=== PATIENT | female | born 1975 ===

== ENCOUNTER 2020-06-04 11:32 | Outpatient (REF) | payer OTHER, SELFPAY ==
[2020-06-04 12:03] LABS: MANUAL DIFF FLAG NO
[2020-06-04 12:07] LABS: Basophils Absolute Auto 0.1 X10*3/uL (0.0-0.2); Basophils Percent Auto 0.4 % (0-2); Eosinophils Percent Auto 0.3 % (0-4); Hematocrit 43.6 % (37-47); Hemoglobin 14.2 g/dl (12.0-16.0); Imm Gran Pct Auto 1.4 % (0.0-0.4); Immature Retic Fraction 14.8 % (3.0-15.9); Lymphocytes Absolute Auto 1.3 X10*3/uL (1.2-4.9); Lymphocytes Percent Auto 9.2 % (20-40); Mean Corpuscular HGB Conc 32.6 g/dl (31.0-35.0); Mean Corpuscular Hemoglobin 27.1 pg (27.0-33.0); Mean Corpuscular Volume 83.2 fL (80-98); Monocytes Absolute Auto 0.9 X10*3/uL (0.1-1.2); Monocytes Percent Auto 6.5 % (2-11); Neutrophils Absolute Auto 11.5 X10*3/uL (2.0-8.3); Neutrophils Percent Auto 82.2 % (45-73); Platelet Count 307 X10*3/uL (160-400); Red Blood Count 5.24 X10*6/uL (4.20-5.50); Red Cell Distribution Width 17.2 % (11.0-16.0); Retic HGB Equivalent 30.8 pg (30.0-35.0); Reticulocytes Absolute 0.102 X10*6/uL (0.026-0.095)
[2020-06-04 12:22] LABS: Estimated Average Glucose 111 mg/dL; Hemoglobin A1c % 5.5 %
[2020-06-04 12:34] LABS: Alanine Aminotransferase 14 U/L (0-31); Albumin Level 4.1 g/dL (3.5-5.0); Alkaline Phosphatase 64 U/L (39-117); Anion Gap 13 (12-20); Aspartate Amino Transferase 11 U/L (5-31); Bilirubin Total 0.5 mg/dL (0.0-1.0); Blood Urea Nitrogen 12 mg/dL (9-16); Calcium 9.3 mg/dL (8.4-10.2); Carbon Dioxide 28 mmol/L (22-29); Chloride 105 mmol/L (96-108); Estimated Glomerular Filt Rate > 60; Glucose Random 73 mg/dL (60-115); Iron 34 mcg/dL (30-160); Magnesium 1.9 mg/dL (1.6-2.6); Percent Iron Saturation 12 % (15-50); Potassium 3.9 mmol/L (3.3-5.1); Sodium 142 mmol/L (135-145); Total Iron Binding Capacity 286 mcg/dL (228-428); Total Protein 6.6 g/dL (6.5-8.0); Unsaturated Iron Binding 252 ug/dL; Uric Acid 5.8 mg/dL (2.4-5.7)
[2020-06-04 12:49] LABS: Ferritin 57 ng/mL (10-250); Free T4 (Free Thyroxine) 0.72 ng/dL (0.71-1.85); Thyroid Stimulating Hormone 0.34 uIU/mL (0.32-4.0); Vitamin D 25-OH Total 34.3 ng/mL (>30)
[2020-06-04 13:04] LABS: Folate 15.4 ng/mL (> or = 4.0); Vitamin B12 256 pg/mL (200-900)
== END 2020-06-04 11:33 | disposition home or self-care (01) ==
LOC: HO.10HDL 11:32
PROVIDERS: Visit Provider Internal Medicine
DX: M08.00 Unspecified juvenile rheumatoid arthritis of unspecified site (principal); M81.0 Age-related osteoporosis without current pathological fracture; D64.9 Anemia, unspecified
CPT/HCPCS: 36415; 80053; 82306; 82607; 82728; 82746; 83036; 83540; 83735; 84439; 84443; 84550; 85025; 85045

== ENCOUNTER 2020-06-12 11:08 | Outpatient (REF) | payer OTHER, SELFPAY ==
[2020-06-12 14:16] LABS: Glucose Urine UA NEG (NEG); Leukocyte Esterase Urine 2+ (NEG); Nitrite Urine NEG (NEG); Urine Blood TRACE (NEG); Urine Ketones NEG (NEG); Urine Protein NEG (NEG-TRACE)
[2020-06-12 14:21] LABS: Appearance Urine CLEAR; Color Urine YELLOW
[2020-06-12 14:40] LABS: Bacteria Urine TRACE /LPF; RBC Urine 0-2 /HPF (0); Squamous Epithelial Cell Urine 1+ /LPF
== END 2020-06-12 11:09 | disposition home or self-care (01) ==
LOC: HO.10HDLNP 11:08
PROVIDERS: Visit Provider Internal Medicine
DX: M08.00 Unspecified juvenile rheumatoid arthritis of unspecified site (principal)
CPT/HCPCS: 81001

== ENCOUNTER → 2021-12-02 10:55 | Outpatient (BNVA) | payer OTHER, SELFPAY | PROVIDERS: PCP Internal Medicine; Referring Provider Internal Medicine; Visit Provider Nurse Practitioner Family | DX: Z12.11 Encounter for screening for malignant neoplasm of colon (principal) | CPT/HCPCS: 99202 ==

== ENCOUNTER 2022-12-10 10:54 | Outpatient (REF) | payer OTHER, SELFPAY ==
--- NOTE | ~2022-12-10 | MM_ITS ---
EXAMINATION: BONE DENSITOMETRY CLINICAL INDICATION: Age-related osteoporosis without current pathological fracture. COMPARISON: This is the patient's baseline examination. TECHNIQUE: Using a Visual[employer] DXA System (software version: 13.1) manufactured by [employer], dual-energy x-ray absorptiometry was performed of the lumbar spine and left forearm radius 33%. Patient had bilateral hip replacements. The images are of good technical quality. Summary results are attached. FINDINGS: AP SPINE L1-L4: BMD 0.757 g/cm2, Z-score -2.7, T-score -3.5, osteoporosis. LEFT FOREARM RADIUS 33%: BMD 0.682 g/cm2, Z-score -2.2, T-score -2.2, osteopenia. IDENTIFIED RISK FACTORS: Early menopause, secondary osteoporosis, glucocorticoids (chronic), height loss, osteoporosis, rheumatoid arthritis. HISTORY OF FRACTURE: None listed. MEDICATIONS: Calcium supplements or multivitamin, vitamin D. MM/XR DEXA axial skeleton IMPRESSION: 1. DIAGNOSIS: Osteoporosis based on the lowest T-score value of -3.5 in the lumbar spine applying World Health Organization criteria. 2. 10-YEAR FRACTURE RISK PREDICTION, FRAX: According to the guidelines, FRAX calculation should only be performed on patients in the osteopenia bone density category. Therefore, FRAX was not performed on this patient. 3. Treatment Recommendations: NOF guidelines recommend consideration for treatment in postmenopausal women and men age 50 and older presenting with the following: -A hip or vertebral (clinical or morphometric) fracture. -T-score less than or equal to -2.5 at the femoral neck or spine after appropriate evaluation to exclude secondary causes. -Low bone mass at the hip or spine and a 10-year fracture probability by FRAX of greater than or equal to 3% for hip fracture or greater than or equal to 20% for major osteoporotic fracture based on the [place] adapted WHO algorithm. 4. Other Recommendations: All treatment decisions require clinical judgment and consideration of individual patient factors, including patient preferences, comorbidities, previous drug use, risk factors not captured in the FRAX model (e.g. frailty, falls, vitamin D deficiency, increased bone turnover, interval significant decline in bone density) and possible under or overestimation of fracture risk by FRAX. Additional medical evaluation for secondary cause of low bone mineral density may be appropriate. FUTURE SCAN RECOMMENDATION: People with diagnosed cases of osteoporosis or at high risk for fracture should have regular bone mineral density tests. For patients eligible for Medicare, routine testing is allowed once every 2 years. The testing frequency can be increased to one year for patients who have rapidly progressing disease, those who are receiving or discontinuing medical therapy to restore bone mass, or have additional risk factors.
== END 2022-12-10 10:55 | disposition home or self-care (01) ==
LOC: HO.MAMMO 10:54
PROVIDERS: Visit Provider Internal Medicine
DX: Z13.820 Encounter for screening for osteoporosis (principal); M81.0 Age-related osteoporosis without current pathological fracture; Z78.0 Asymptomatic menopausal state
CPT/HCPCS: 77080

== ENCOUNTER 2023-03-18 11:17 | Outpatient (AMB) | payer OTHER, SELFPAY ==
[2023-03-18 11:19] VITALS: BP 116/80; PULSE 69; O2SAT 90
--- NOTE | 2023-03-18 11:19 | MHC.PC.OV ---
Vital Signs 03/18/23 11:19 Height 4 ft 7 in BMI Reason not done Patient refused/unable BP 116/80 Blood Pressure Location Rt brachial Position Sitting Pulse 69 Pulse Source Pulse Oximeter Pulse Oximetry (%) 90 L Oxygen Delivery Method Room Air Intake Visit Reasons: DANIKA Etl [employer] Architect Required: No Gastrointestinal Technician: Present Accompanied by: Sister Allergies No Known Allergies Allergy (Verified 03/18/23 11:19) Medication List - Last Reconciled 03/18/23 by Ramakrishna Jordan MD acai marks extract mg PO calcium carbonate-vitamin D3 600 mg-12.5 mcg (500 unit) (Calcium 600 with Vitamin D3) caps PO BID celecoxib (Celebrex) 200 mg PO DAILY [id number] mg (Mega[employer] [place]-3 Krill Oil) caps PO lactulose 20 grams (30 mL) PO BID PRN multivitamin with iron 1 tab PO DAILY upadacitinib ER (Rinvoq) 15 mg PO DAILY [walker with 2 front wheels and 2 left and right platforms] Tobacco use date assessed: 09/17/22 Dental Screening Dental Screen Date: 03/18/23 Did you have a dental visit in the last 12 months?: Yes Did you have a dental problem in the last 6 months where you did not have access to dental care?: No Was dental information given to patient?: Patient has dentist HPI DANIKA HPI Details 48-year-old female with JRA osteoporosis hypercholesterol E psoriasis coming in for follow-up. Last seen in August 2022. Patient's mammogram is up-to-date March 2022 osteoporosis by bone density November 2022. Patient does follow-up with or Rheumatology for the a GR a for the osteoporosis placed on Actonel from [id number]. Rheumatoid arthritis negative for multiple sites history of prednisone and Rinvoq currently off medication patient was advised if lab work looks good start Rinvoq. September 2022 had right total knee arthroplasty with Dr. Nicole. Patient states has psoriasis but does not like the present digital editor and would like to be referred to a different digital editor. Patient has a rash on the leg and would like some help temporarily until they can see the digital editor. As for movement patient is not able to stand up on her own but able to transfers while holding on to something discussed about moving the legs to prevent blood clots. [facility] Medical History (Updated 12/27/23 @ 12:31 by Ramakrishna Jordan MD) Anemia Schizophrenia Vitamin D deficiency Rheumatoid arthritis Surgical History (Updated 03/18/23 @ 12:18 by Ramakrishna Jordan MD) History of phacoemulsification of cataract of right eye with intraocular lens implantation History of phacoemulsification of cataract of left eye with intraocular lens implantation History of total left knee replacement History of total left hip replacement History of total right hip replacement Family History Mother Diabetes High blood pressure Heart failure Schizophrenia Mental health disorder Father Diabetes Maternal Aunt Breast cancer Social History Housing: Apartment Alcohol intake: never Patient Tobacco Use Status: Never used Tobacco e-Cigarette/Vaping Use: Never Used Second Hand Smoke Exposure: No service: No Current occupational status: disabled Cognitive needs: No Hearing needs: Yes Vision needs: No Questionnaire Thrive Questionnaire Date Thrive assessed: 09/17/22 BIPIN-7 AMB Questionnaire BIPIN-7 Date BIPIN - 7 assessed: 09/17/22 Source: Developed by Drs. Willam Flynn, Beth Rush, Abhishek Mayfield and colleagues, with an educational dian from [employer]. Physical exam (Primary Care) Vital Signs: Last Vital Signs Pulse 69 03/18/23 11:19 BP 116/80 03/18/23 11:19 Pulse Ox 90 L 03/18/23 11:19 Oxygen Delivery Method Room Air 03/18/23 11:19 Tobacco/Smoking Status: Tobacco use Status Tobacco use date assessed 09/17/22 03/18/23 11:27 Patient Tobacco Use Status Never used Tobacco 03/18/23 11:27 e-Cigarette/Vaping Use Never Used 03/18/23 11:27 Thrive Assessment: Date of Thrive Assessment Date Thrive assessed 09/17/22 03/18/23 11:27 Const General: alert; No acute distress Eyes Conjunctivae: conjunctivae normal Resp Auscultation: clear to auscultation bilaterally Cardio Rate: regular rate Rhythm: regular rhythm GI Inspection: Yes normal to inspection Extrem Other: Multiple desquamated areas on the lower extremity legs Ankle/foot/toe images: 1. Multiple areas of desquamated along the lower legs mild erythema 2. Assessment and Plan Assessment & Plan (1) Hx of total knee arthroplasty: Comment: September [address]22 Dr. Nicole Code(s): Z96.659 - Presence of unspecified artificial knee joint (2) Juvenile rheumatoid arthritis: Comment: Dr. Silva Code(s): M08.00 - Unspecified juvenile rheumatoid arthritis of unspecified site Plan: Continues to follow-up with Rheumatology (3) Osteoporosis: Comment: 2019 Code(s): M81.0 - Age-related osteoporosis without current pathological fracture Plan: Discussed about bone densities (4) Hypercholesterolemia: Code(s): E78.00 - Pure hypercholesterolemia, unspecified Plan: Avoid fried foods, chicken skin, eggs, butter margarine, pastries and meat. Be it pork or beef they have a lot of cholesterol (5) Anemia: Code(s): D64.9 - Anemia, unspecified Plan: Will repeat the blood test (6) Psoriasis: Code(s): L40.9 - Psoriasis, unspecified Plan: Patient will get a referral to Dermatology. (7) Contact dermatitis and eczema: Code(s): L25.9 - Unspecified contact dermatitis, unspecified cause Plan: Discussed with the patient that it looks more contact dermatitis with the socks since the location is just legs bilateral (8) Colon cancer screening: Code(s): Z12.11 - Encounter for screening for malignant neoplasm of colon Plan: reminded about the cologuard test Orders: Orders Complete Blood Count Auto Diff Today D64.9 - Anemia, unspecified IRON PROFILE Today D64.9 - Anemia, unspecified Reticulocyte Count Today D64.9 - Anemia, unspecified Vitamin D 25-OH Total Today D64.9 - Anemia, unspecified Free T4 (Free Thyroxine) Today D64.9 - Anemia, unspecified Erythrocyte Sedimentation Rate Today D64.9 - Anemia, unspecified Comprehensive Met. Panel Today D64.9 - Anemia, unspecified Ferritin Today D64.9 - Anemia, unspecified Thyroid Stimulating Hormone Today D64.9 - Anemia, unspecified Vitamin B12 and Folate Today D64.9 - Anemia, unspecified Lipid Panel Today D64.9 - Anemia, unspecified, E78.00 - Pure hypercholesterolemia, unspecified C Reactive Protein Today D64.9 - Anemia, unspecified Referrals Dermatology Referral L40.9 - Psoriasis, unspecified Medications: New betamethasone, augmented 0.05 % (Diprolene (augmented)) 1 appl topical BID PRN 45 grams 0RF skin irritation L25.9 - Unspecified contact dermatitis, unspecified cause Coding Level of Care Code Est Pt Level 4 (46176) Diagnoses Hx of total knee arthroplasty Z96.659 Juvenile rheumatoid arthritis M08.00 Osteoporosis M81.0 Hypercholesterolemia E78.00 Anemia D64.9 Psoriasis L40.9 Contact dermatitis and eczema L25.9 Colon cancer screening Z12.11
== END 2023-03-18 12:40 | disposition home or self-care (01) ==
PROVIDERS: PCP Internal Medicine; Visit Provider Internal Medicine
DX: Z96.659 Presence of unspecified artificial knee joint (principal); M08.00 Unspecified juvenile rheumatoid arthritis of unspecified site; M81.0 Age-related osteoporosis without current pathological fracture; E78.00 Pure hypercholesterolemia, unspecified; D64.9 Anemia, unspecified; L40.9 Psoriasis, unspecified; L25.9 Unspecified contact dermatitis, unspecified cause; Z12.11 Encounter for screening for malignant neoplasm of colon
CPT/HCPCS: 99214

== ENCOUNTER 2023-09-21 11:36 | Outpatient (AMB) | payer OTHER, SELFPAY ==
[2023-09-21 11:45] VITALS: BP 112/70; PULSE 62; O2SAT 98
--- NOTE | 2023-09-21 11:45 | MHC.PC.OV ---
Vital Signs 09/21/23 11:45 Height 4 ft 7 in BMI Reason not done Patient refused/unable BP 112/70 Blood Pressure Location Lt brachial Position Sitting Pulse 62 Pulse Source Pulse Oximeter Pulse Oximetry (%) 98 Oxygen Delivery Method Room Air Intake Visit Reasons: pe Allergies No Known Allergies Allergy (Verified 09/21/23 11:46) Medication List - Last Reconciled 09/21/23 by Ramakrishna Jordan MD acai marks extract mg PO betamethasone, augmented 0.05 % (Diprolene (augmented)) 1 appl topical BID PRN calcium carbonate-vitamin D3 600 mg-12.5 mcg (500 unit) (Calcium 600 with Vitamin D3) caps PO BID celecoxib (Celebrex) 200 mg PO DAILY lactulose 20 grams (30 mL) PO BID PRN multivitamin with iron 1 tab PO DAILY upadacitinib ER (Rinvoq) 15 mg PO DAILY [walker with 2 front wheels and 2 left and right platforms] Tobacco use date assessed: 09/21/23 Dental Screening Dental Screen Date: 09/21/23 Did you have a dental visit in the last 12 months?: Yes Did you have a dental problem in the last 6 months where you did not have access to dental care?: No Was dental information given to patient?: Patient has dentist HPI pe HPI Details 48-year-old female with juvenile rheumatoid arthritis wheelchair born having osteoporosis hypercholesterolemia anemia psoriasis coming in for physical exam last seen in 03/11/2023. Patient's mammogram is due bone density is up-to-date. Review of the notes in June was seen by the ear nose and throat for hearing test has bilateral sensorineural hearing loss patient has been advised to get hearing aids. As for the JRA being followed up by arthritis treatment center sed rate 25 done in 07/11/2023 CRP 1.7 blood count is low but stable with microcytosis normal platelet count. reminded about JAKOB jose Medical History (Updated 07/21/23 @ 19:01 by Ramakrishna Jordan MD) Anemia Schizophrenia Vitamin D deficiency Rheumatoid arthritis Surgical History (Updated 03/18/23 @ 12:18 by Ramakrishna Jordan MD) History of phacoemulsification of cataract of right eye with intraocular lens implantation History of phacoemulsification of cataract of left eye with intraocular lens implantation History of total left knee replacement History of total left hip replacement History of total right hip replacement Family History Mother Diabetes High blood pressure Heart failure Schizophrenia Mental health disorder Father Diabetes Maternal Aunt Breast cancer Social History Housing: Apartment Alcohol intake: never Patient Tobacco Use Status: Never used Tobacco e-Cigarette/Vaping Use: Never Used Second Hand Smoke Exposure: No service: No Current occupational status: disabled Cognitive needs: No Hearing needs: Yes Vision needs: No Questionnaire PHQ-9 Over the last 2 weeks, how often have you been bothered by any of the following problems? 1. Little interest or pleasure in doing things: not at all 2. Feeling down, depressed, or hopeless: not at all 3. Trouble falling or staying asleep, or sleeping too much: not at all 4. Feeling tired or having little energy: not at all 5. Poor appetite or overeating: not at all 6. Feeling bad about yourself - or that you are a failure or have let yourself or your family down: not at all 7. Trouble concentrating on things, such as reading the newspaper or watching television: not at all 8. Moving or speaking so slowly that other people could have noticed. Or the opposite - being so fidgety or restless that you have been moving around a lot more than usual: not at all 9. Thoughts that you would be better off or of hurting yourself in some way: not at all Total score: 0 Depression Screening Interpretation: Negative Depression Screening Done: Yes Source: Developed by Drs. Willam Flynn, Beth Rush, Abhishek Mayfield and colleagues, with an educational dian from [employer]. Thrive Questionnaire Date Thrive assessed: 09/21/23 I am a: Patient What is your living situation today?: I have a steady place to live Within the past 12 months, did the food you bought not last and you didn't have the money to get more?: Never true Within the past 12 months, did you worry whether your food would run out before you got money to buy more?: Never true Do you have trouble paying for medicines?: No Do you have trouble getting transportation to medical appointments?: No Do you have trouble paying your heating and electricity bill?: No Do you have trouble taking care of your child, family member or friend?: No Do you have trouble with day-to-day activities such as bathing, preparing meals, shopping, managing finances, etc.?: No Are you currently unemployed and looking for a job?: No Are you interested in more education?: No Currently or been in a relationship where the following occur: No concerns reported THRIVE Score: 0 AUDIT C Alcohol Use Questionnaire (AUDIT-C) 1. How often do you have a drink containing alcohol?: Never 3. How often do you have six or more drinks on one occasion?: Never Total Score: 0 BIPIN-7 AMB Questionnaire BIPIN-7 Date BIPIN - 7 assessed: 09/21/23 Feeling nervous, anxious, or on edge: 0 = Not at all Not being able to stop or control worryin = Not at all Worrying too much about different things: 0 = Not at all Trouble relaxin = Not at all Being so restless that it is hard to sit still: 0 = Not at all Becoming easily annoyed or irritable: 0 = Not at all Feeling afraid as if something awful might happen: 0 = Not at all Total BIPIN-7 score (0-4 normal; 5-9 mild; 10-14 moderate; 15-21 severe): 0 Source: Developed by Drs. Willam Flynn, Beth Rush, Abhishek Mayfield and colleagues, with an educational dian from [employer]. Review of Systems Const Denies poor appetite and Denies weakness Eyes Denies no additional complaints ENT Reports Normal hearing present, Denies dizziness, Denies nasal congestion, Denies tinnitus and Denies sore throat Card Denies chest pain, Denies syncope, Denies rapid heart rate and Denies dyspnea Resp Denies cough and Denies dyspnea GI Denies change in stool character, Reports constipation, Denies diarrhea, Denies nausea and Denies vomiting Denies urinary frequency, Denies difficulty voiding and Denies dysuria Neuro Reports Normal hearing present, Denies confusion, Denies dizziness, Denies syncope and Denies weakness Psych Denies confusion Physical exam (Primary Care) Vital Signs: Last Vital Signs Pulse 62 09/21/23 11:45 BP 112/70 09/21/23 11:45 Pulse Ox 98 09/21/23 11:45 Oxygen Delivery Method Room Air 09/21/23 11:45 Tobacco/Smoking Status: Tobacco use Status Tobacco use date assessed 09/21/23 09/21/23 11:53 Patient Tobacco Use Status Never used Tobacco 09/21/23 11:53 e-Cigarette/Vaping Use Never Used 09/21/23 11:53 PHQ-9: PHQ-9 Score PHQ-9: Total score 0 09/21/23 11:53 Depression Screening Interpretation: Negative Thrive Assessment: Date of Thrive Assessment Date Thrive assessed 09/21/23 09/21/23 11:53 Currently or been in a relationship where the following occur: No concerns reported Const General: No confusion Orientation/consciousness: No confusion HENMT Head: Yes normocephalic Ears: external ears normal and TM's normal bilaterally Face and sinus: Yes normal facial exam Mouth: moist mucous membranes Throat: Yes tonsils normal Eyes Conjunctivae: conjunctivae normal Pupils: Equal, round and reactive pupils present and Pupil accommodation reflex normal Direct Ophthalmoscopy: normal light reflex Neck Neck: No lymphadenopathy Thyroid: Thyroid normal Chest Chest palpation & inspection: normal inspection of the chest Resp Effort & Inspection: normal respiratory effort and no audible wheezes Auscultation: clear to auscultation bilaterally, no crackles, no wheezes and lung sounds not diminished Cardio Rate: regular rate Rhythm: regular rhythm Peripheral pulses: radial pulses present and dorsalis pedis present GI Palpation (GI): no masses Auscultation: normal bowel sounds and normoactive bowel sounds Rectal Exam - Female: deferred Skin General skin exam: no rashes or lesions noted Rashes: no rashes Neuro Other: scaly whitish rash on the bilateral leg area- decline to see derm, hand defromity with lateral deviation of fingers General: No confusion Cranial nerves: Yes Equal, round and reactive pupils present and Yes Normal hearing present Cognition (Neuro): normal cognition Gait exam (Neuro): Normal gait present Motor exam (neuro): 5/5 motor strength present throughout Deep tendon reflexes (DTR's): Right brachioradialis reflex intensity grade: 2+, Left brachioradialis reflex intensity grade: 2+, Right patellar reflex intensity grade: 2+ and Left patellar reflex intensity grade: 2+ Extrem General: No edema Assessment and Plan Assessment & Plan (1) Annual physical exam: Code(s): Z00.00 - Encounter for general adult medical examination without abnormal findings Plan: Patient is advised to eat healthy, keep well hydrated, keep active and have adequate sleep. (2) Iron deficiency anemia: Code(s): D50.9 - Iron deficiency anemia, unspecified Plan: Discussed about iron deficiency anemia (3) Juvenile rheumatoid arthritis: Comment: Dr. Silva Code(s): M08.00 - Unspecified juvenile rheumatoid arthritis of unspecified site Plan: Continue to follow-up with Rheumatology (4) Osteoporosis: Comment: 2019 Code(s): M81.0 - Age-related osteoporosis without current pathological fracture Plan: Bone density is up-to-date (5) Colon cancer screening: Code(s): Z12.11 - Encounter for screening for malignant neoplasm of colon Plan: Reminded about colon test (6) Hypercholesterolemia: Code(s): E78.00 - Pure hypercholesterolemia, unspecified Plan: Avoid fried foods, chicken skin, eggs, butter margarine, pastries and meat. Be it pork or beef they have a lot of cholesterol Orders: Orders Complete Blood Count Auto Diff Today D50.9 - Iron deficiency anemia, unspecified Comprehensive Met. Panel Today D50.9 - Iron deficiency anemia, unspecified Ferritin Today D50.9 - Iron deficiency anemia, unspecified IRON PROFILE Today D50.9 - Iron deficiency anemia, unspecified Vitamin B12 and Folate Today D50.9 - Iron deficiency anemia, unspecified Thyroid Stimulating Hormone Today E78.00 - Pure hypercholesterolemia, unspecified Reticulocyte Count Today D50.9 - Iron deficiency anemia, unspecified Lipid Panel Today E78.00 - Pure hypercholesterolemia, unspecified Free T4 (Free Thyroxine) Today E78.00 - Pure hypercholesterolemia, unspecified Vitamin D 25-OH Total Today E78.00 - Pure hypercholesterolemia, unspecified Referrals Cologuard Test Z12.11 - Encounter for screening for malignant neoplasm of colon Medications: New ferrous sulfate (Feosol) 325 mg PO DAILY 30 tabs 3RF Coding Level of Care Code Est Pt Prev Care 40-64y(99523) Diagnoses Annual physical exam Z00.00 Iron deficiency anemia D50.9 Juvenile rheumatoid arthritis M08.00 Osteoporosis M81.0 Colon cancer screening Z12.11 Hypercholesterolemia E78.00
== END 2023-09-21 12:57 | disposition home or self-care (01) ==
PROVIDERS: PCP Internal Medicine; Visit Provider Internal Medicine
DX: Z00.00 Encounter for general adult medical examination without abnormal findings (principal); D50.9 Iron deficiency anemia, unspecified; M08.00 Unspecified juvenile rheumatoid arthritis of unspecified site; M81.0 Age-related osteoporosis without current pathological fracture; Z12.11 Encounter for screening for malignant neoplasm of colon; E78.00 Pure hypercholesterolemia, unspecified
CPT/HCPCS: 99396

== ENCOUNTER 2024-02-08 11:21 | Outpatient (REF) | payer OTHER, SELFPAY ==
[2024-02-08 11:46] LABS: MANUAL DIFF FLAG NO
[2024-02-08 12:28] LABS: Basophils Absolute Auto 0.1 X10*3/uL (0.0-0.2); Basophils Percent Auto 0.9 % (0-2); Eosinophils Absolute Auto 0.2 X10*3/uL (0.0-0.4); Eosinophils Percent Auto 2.2 % (0-4); Hemoglobin 13.2 g/dl (12.0-16.0); Imm Gran Abs Auto 0.02 X10*3/uL (0.00-0.03); Imm Gran Pct Auto 0.3 % (0.0-0.4); Immature Retic Fraction 9.7 % (3.0-15.9); Lymphocytes Absolute Auto 1.3 X10*3/uL (1.2-4.9); Lymphocytes Percent Auto 19.7 % (20-40); Mean Corpuscular HGB Conc 32.2 g/dl (31.0-35.0); Mean Corpuscular Hemoglobin 25.7 pg (27.0-33.0); Mean Corpuscular Volume 79.8 fL (80.0-98.0); Mean Platelet Volume 10.1 fL (9.4-12.3); Monocytes Absolute Auto 0.5 X10*3/uL (0.1-1.2); Monocytes Percent Auto 6.8 % (2-11); Neutrophils Absolute Auto 4.7 x10*3/uL (2.0-8.3); Neutrophils Percent Auto 70.1 % (45-73); Platelet Count 288 X10*3/uL (160-400); Red Blood Count 5.14 X10*6/uL (4.20-5.50); Red Cell Distribution Width 15.8 % (11.0-16.0); Retic HGB Equivalent 28.5 pg (30.0-35.0); Reticulocyte Percent 1.5 % (0.5-1.8); Reticulocytes Absolute 0.076 X10*6/uL (0.026-0.095); White Blood Count 6.8 X10*3/uL (4.8-10.8)
[2024-02-08 12:57] LABS: Alanine Aminotransferase 8 U/L (0-31); Albumin Level 3.9 g/dL (3.5-5.0); Alkaline Phosphatase 92 U/L (39-117); Anion Gap 9 (12-20); Aspartate Amino Transferase 17 U/L (5-31); Bilirubin Total 0.2 mg/dL (0.0-1.0); Blood Urea Nitrogen 11 mg/dL (9-16); Calcium 9.3 mg/dL (8.4-10.2); Carbon Dioxide 27 mmol/L (22-29); Chloride 107 mmol/L (96-108); Cholesterol 211 mg/dL (<200); Estimated Glomerular Filt Rate > 60; Glucose Random 88 mg/dL (60-115); HDL Cholesterol 57 mg/dL (>40); Iron 26 mcg/dL (30-160); LDL Cholesterol Calculated 142 mg/dL (<100); Percent Iron Saturation 11 % (15-50); Sodium 139 mmol/L (135-145); Total Iron Binding Capacity 246 mcg/dL (228-428); Total Protein 7.1 g/dL (6.5-8.0); Triglycerides 61 mg/dL (<150); Unsaturated Iron Binding 220 ug/dL
[2024-02-08 13:14] LABS: Ferritin 77 ng/mL (10-250); Free T4 (Free Thyroxine) 1.02 ng/dL (0.71-1.85); Thyroid Stimulating Hormone 1.37 uIU/mL (0.32-4.0); Vitamin D 25-OH Total 31.3 ng/mL (>30)
[2024-02-08 13:27] LABS: Folate 16.3 ng/mL (> or = 4.0); Vitamin B12 834 pg/mL (200-900)
== END 2024-02-08 11:22 | disposition home or self-care (01) ==
LOC: HO.LAB 11:21
PROVIDERS: PCP Internal Medicine; Visit Provider Internal Medicine
DX: D50.9 Iron deficiency anemia, unspecified (principal); E78.00 Pure hypercholesterolemia, unspecified
CPT/HCPCS: 36415; 80053; 80061; 82306; 82607; 82728; 82746; 83540; 84439; 84443; 85025; 85045

== ENCOUNTER 2024-11-09 11:08 | Outpatient (AMB) | payer OTHER, SELFPAY ==
--- NOTE | 2024-11-09 11:11 | A.OFFPC_ITS ---
Vital Signs 11/09/24 11:12 Height 4 ft 7 in Weight 115 lb BMI 26.7 BP 116/58 L Blood Pressure Location Lt brachial Position Sitting Pulse 67 Pulse Source Pulse Oximeter Pulse Oximetry (%) 97 Oxygen Delivery Method Room Air Intake Visit Reasons: Annual Exam Manager Utilization Required: No Accompanied by: Self / Same As Patient Allergies No Known Allergies Allergy (Verified 11/09/24 11:23) Medication List - Last Reconciled 11/09/24 by Tiara Leung PA-C acai marks extract mg PO ferrous sulfate 325 mg PO DAILY multivitamin with iron 1 tab PO DAILY upadacitinib ER (Rinvoq) 15 mg PO DAILY [walker with 2 front wheels and 2 left and right platforms] Tobacco use date assessed: 11/09/24 Dental Screening Dental Screen Date: 11/09/24 Did you have a dental visit in the last 12 months?: No Did you have a dental problem in the last 6 months where you did not have access to dental care?: No HPI Annual Exam HPI Details 49-year-old female with past medical his tory of juvenile rheumatoid arthritis, osteoporosis, hypercholesterolemia, psoriasis last seen 10/2023 coming in for annual exam.? In review of the notes, patient [facility] 09/2024 plan for blood work, continue on Rinnoq 15 mg daily and follow up in 3 months. Pesenting with an annual wellness examination. The patient has a history of psoriasis affecting her legs, which she describes as drying up and not itchy. She is not using any treatment currently, although steroid creams are available at home. The patient experiences difficulty sleeping, potentially related to multiple personalities. She is considering trazodone for treatment, having not used sleep medication previously. Mammogram: 06/2023 with [facility] Eye exam: yearly with Dr. 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 1. Little interest or pleasure in doing things: not at all 2. Feeling down, depressed, or hopeless: not at all 3. Trouble falling or staying asleep, or sleeping too much: not at all 4. Feeling tired or having little energy: not at all 5. Poor appetite or overeating: not at all 6. Feeling bad about yourself - or that you are a failure or have let yourself or your family down: not at all 7. Trouble concentrating on things, such as reading the newspaper or watching television: not at all 8. Moving or speaking so slowly that other people could have noticed. Or the opposite - being so fidgety or restless that you have been moving around a lot more than usual: not at all 9. Thoughts that you would be better off or of hurting yourself in some way: not at all Total score: 0 Depression Screening Interpretation: Negative Depression Screening Done: Yes 56575 - PHQ-9 Billing: Yes Source: Developed by Drs. Willam Flynn, Beth Rush, Abhishek Mayfield and colleagues, with an educational dian from [employer]. Thrive Questionnaire Date Thrive assessed: 11/09/24 I am a: Patient What is your living situation today?: I have a steady place to live Within the past 12 months, did the food you bought not last and you didn't have the money to get more?: Never true Within the past 12 months, did you worry whether your food would run out before you got money to buy more?: Never true Do you have trouble paying for medicines?: No Do you have trouble getting transportation to medical appointments?: No Do you have trouble paying your heating and electricity bill?: No Do you have trouble taking care of your child, family member or friend?: I choose not to answer this question Do you have trouble with day-to-day activities such as bathing, preparing meals, shopping, managing finances, etc.?: Yes Are you currently unemployed and looking for a job?: Yes Are you interested in more education?: No Please select the resources that you would like help with: None Currently or been in a relationship where the following occur: No concerns reported THRIVE Score: 0 AUDIT C Alcohol Use Questionnaire (AUDIT-C) 1. How often do you have a drink containing alcohol?: Never Total Score: 0 BIPIN-7 AMB Questionnaire BIPIN-7 Date BIPIN - 7 assessed: 11/09/24 Feeling nervous, anxious, or on edge: 0 = Not at all Not being able to stop or control worryin = Not at all Worrying too much about different things: 0 = Not at all Trouble relaxin = Not at all Being so restless that it is hard to sit still: 0 = Not at all Becoming easily annoyed or irritable: 0 = Not at all Feeling afraid as if something awful might happen: 0 = Not at all Total BIPIN-7 score (0-4 normal; 5-9 mild; 10-14 moderate; 15-21 severe): 0 Source: Developed by Drs. Willam Flynn, Beth Rush, Abhishek Mayfield and colleagues, with an educational dian from [employer]. BIPIN-7 Assessment Billing BIPIN-7 Assessment Tool: BIPIN-7 Assessment 74571 Review of Systems Const Denies body aches, Denies chills, Denies fever(s), Denies headache(s) and Denies poor appetite Eyes Reports no additional complaints ENT Denies dysphagia, Denies dizziness, Denies headache(s) and Denies odynophagia Card Denies chest pain, Denies syncope, Denies edema, Denies irregular heart rhythm, Denies lightheadedness and Denies dyspnea Resp Denies cough and Denies dyspnea GI Denies abdominal pain, Denies constipation, Denies dysphagia, Denies diarrhea, Denies nausea, Denies odynophagia and Denies vomiting Reports no additional complaints Musc Reports no additional complaints and Denies abnormal gait Skin/Breast Reports system reviewed and no additional complaints, except as documented Neuro Denies abnormal gait, Denies dizziness, Denies syncope and Denies headache(s) Psych Reports no additional complaints Physical exam (Primary Care) Vital Signs: Last Vital Signs Pulse 67 11/09/24 11:12 BP 116/58 L 11/09/24 11:12 Pulse Ox 97 11/09/24 11:12 Oxygen Delivery Method Room Air 11/09/24 11:12 BMI result Body Mass Index 26.7 Tobacco/Smoking Status: Tobacco use Status Tobacco use date assessed 11/09/24 11/09/24 11:20 Patient Tobacco Use Status Never used Tobacco 11/09/24 11:20 e-Cigarette/Vaping Use Never Used 11/09/24 11:20 PHQ-9: PHQ-9 Score PHQ-9: Total score 0 11/09/24 11:31 Depression Screening Interpretation: Negative Thrive Assessment: Date of Thrive Assessment Date Thrive assessed 11/09/24 11/09/24 11:20 Currently or been in a relationship where the following occur: No concerns reported Const General: cooperative, healthy appearing, comfortable and no acute distress Orientation/consciousness: patient oriented x3 HENMT Head: Yes normocephalic Ears: hearing grossly normal bilaterally General nose exam: Normal external nose present Eyes General: appearance normal, both eyes and all related structures Conjunctivae: conjunctivae normal Neck Neck: Yes full ROM and Yes no lymphadenopathy Resp Effort & Inspection: normal respiratory effort Auscultation: clear to auscultation bilaterally, no crackles, no rales, no rhonchi and no wheezes Cardio Rate: regular rate Rhythm: regular rhythm Skin General skin exam: no rashes or lesions noted Neuro General: patient oriented x3 Extrem General: Yes normal to inspection, Yes full ROM and No edema Psych Affect: normal affect Attitude: cooperative Insight: Good insight present (Psych) Judgement: Good judgement present (Psych) Coding Level of Care Code Est Pt Prev Care 40-64y(60540) Diagnoses Annual physical exam Z00.00 Hypercholesterolemia E78.00 Vitamin B 12 deficiency E53.8 Constipation K59.00 Colon cancer screening Z12.11 Iron deficiency anemia D50.9 Juvenile rheumatoid arthritis M08.00 Insomnia G47.00 Additional Codes BIPIN-7 Assessment Billing - BIPIN-7 Assessment Tool: BIPIN-7 Assessment 66777 ([id number]) PHQ-9 - 43525 - PHQ-9 Billing: Yes ([id number]) Assessment & Plan Assessment & Plan (1) Annual physical exam: Code(s): Z00.00 - Encounter for general adult medical examination without abnormal findings Category: Medical Plan: Patient is up-to-date on all recommended routine screenings and vaccinations for her age. I did ordered for updated blood work as she is due. Plan to follow up in a year or sooner as needed (2) Hypercholesterolemia: Code(s): E78.00 - Pure hypercholesterolemia, unspecified Category: Medical Plan: Avoid foods that are high in cholesterol such as red meat, fried foods, eggs and baked goods. Triglyceride goal of less than 150 and LDL goal of less than 130. Ordered for updated blood work (3) Vitamin B 12 deficiency: Code(s): E53.8 - Deficiency of other specified B group vitamins Category: Medical Plan: Continue to monitor blood work at this time (4) Constipation: Code(s): K59.00 - Constipation, unspecified Category: Medical Plan: Increase water and fiber intake. Patient may use MiraLax as needed for constipation (5) Colon cancer screening: Code(s): Z12.11 - Encounter for screening for malignant neoplasm of colon Category: Medical Plan: Up-to-date with Cologuard (6) Iron deficiency anemia: Code(s): D50.9 - Iron deficiency anemia, unspecified Category: Medical Plan: Continue to monitor blood work and on oral iron supplementation (7) Juvenile rheumatoid arthritis: Comment: Dr. Silva Code(s): M08.00 - Unspecified juvenile rheumatoid arthritis of unspecified site Category: Medical Plan: Currently following with [facility] treatment center and on Rinvoq. (8) Insomnia: Code(s): G47.00 - Insomnia, unspecified Category: Medical Plan: Patient complaining of difficulty falling asleep at night. She is not interested in seeing a counselor or psychiatrist. Plan to trial on trazodone at bedtime to be used as needed for sleep. Plan The patient will continue with Rinvoq for rheumatoid arthritis, as it effectively manages her symptoms. For psoriasis, she should use steroid creams if itching occurs and avoid scratching to prevent infection. Trazodone is recommended for insomnia, starting with a low dose to monitor effectiveness and side effects. Preventative care includes a mammogram order for [facility] and confirmation of up-to-date vaccinations. The patient should complete fasting blood work, with results to be reviewed for further action if needed. This note was constructed using voice recognition software. While every effort has been made to ensure accuracy and industrial furnace fabricator, still areas may have been included sometimes these areas may affect the content or meeting of the given symptoms. Total time spent caring for the patient today was 30 minutes. This includes time spent before the visit reviewing the chart, time spent during the visit, and time spent after the visit and documentation. Patient was informed and verbally consented to the use of an ambient scribe for clinic note documentation during this visit. Orders: Orders MM tomosynthesis screening BI Today Z12.31 - Encounter for screening mammogram for malignant neoplasm of breast Lipid Panel Today E78.00 - Pure hypercholesterolemia, unspecified Complete Blood Count Auto Diff Today D50.9 - Iron deficiency anemia, unspecified, Z00.00 - Encounter for general adult medical examination without abnormal findings TSH reflex Free T4 Today M81.0 - Age-related osteoporosis without current pathological fracture, Z13.29 - Encounter for screening for other suspected endocrine disorder Vitamin B12 and Folate Today E53.8 - Deficiency of other specified B group vitamins, Z13.21 - Encounter for screening for nutritional disorder Vitamin D 25-OH Total Today E53.8 - Deficiency of other specified B group vitamins, Z13.21 - Encounter for screening for nutritional disorder Comprehensive Met. Panel Today M81.0 - Age-related osteoporosis without current pathological fracture, Z00.00 - Encounter for general adult medical examination without abnormal findings Medications: New trazodone 50 mg PO BEDTIME PRN 30 tabs 0RF sleep M81.0 - Age-related osteoporosis without current pathological fracture
[2024-11-09 11:12] VITALS: BP 116/58; PULSE 67; O2SAT 97; BMI 26.7
== END 2024-11-09 11:46 | disposition home or self-care (01) ==
LOC: HO.HMCH 11:09
PROVIDERS: PCP Internal Medicine
DX: Z00.00 Encounter for general adult medical examination without abnormal findings (principal); M08.00 Unspecified juvenile rheumatoid arthritis of unspecified site; E78.00 Pure hypercholesterolemia, unspecified; E53.8 Deficiency of other specified B group vitamins; K59.00 Constipation, unspecified; Z12.11 Encounter for screening for malignant neoplasm of colon; D50.9 Iron deficiency anemia, unspecified; G47.00 Insomnia, unspecified

== ENCOUNTER 2024-11-09 11:08 | Outpatient (REF) | payer OTHER, SELFPAY ==
[2024-11-09 12:17] LABS: MANUAL DIFF FLAG NO
[2024-11-09 13:51] LABS: Hematocrit 42.0 % (37.0-47.0); Hemoglobin 13.6 g/dl (12.0-16.0); Imm Gran Abs Auto 0.04 X10*3/uL (0.00-0.03); Imm Gran Pct Auto 0.5 % (0.0-0.4); Lymphocytes Absolute Auto 1.3 X10*3/uL (1.2-4.9); Mean Corpuscular HGB Conc 32.4 g/dl (31.0-35.0); Mean Corpuscular Hemoglobin 26.0 pg (27.0-33.0); Mean Corpuscular Volume 80.3 fL (80.0-98.0); NRBC Abs Auto 0.000 X10*3/uL (0.0-0.012); NRBC Pct Auto 0.0 /100WBC (0.0-0.2); Platelet Count 278 X10*3/uL (160-400); Red Blood Count 5.23 X10*6/uL (4.20-5.50); White Blood Count 7.4 X10*3/uL (4.8-10.8)
[2024-11-09 14:30] LABS: Alanine Aminotransferase 11 U/L (0-31); Albumin Level 4.0 g/dL (3.5-5.0); Alkaline Phosphatase 90 U/L (39-117); Anion Gap 15 (12-20); Aspartate Amino Transferase 20 U/L (5-31); Blood Urea Nitrogen 13 mg/dL (9-16); Calcium 9.2 mg/dL (8.4-10.2); Carbon Dioxide 24 mmol/L (22-29); Chloride 106 mmol/L (96-108); Cholesterol 220 mg/dL (<200); Estimated Glomerular Filt Rate > 60; HDL Cholesterol 55 mg/dL (>40); Potassium 4.2 mmol/L (3.3-5.1); Sodium 141 mmol/L (135-145); Total Protein 7.1 g/dL (6.5-8.0); Triglycerides 112 mg/dL (<150)
== END 2024-11-09 11:09 | disposition home or self-care (01) ==
LOC: HO.LAB 11:08
PROVIDERS: PCP Internal Medicine
DX: Z00.00 Encounter for general adult medical examination without abnormal findings (principal); E78.00 Pure hypercholesterolemia, unspecified; E53.8 Deficiency of other specified B group vitamins; D50.9 Iron deficiency anemia, unspecified; K59.00 Constipation, unspecified; G47.00 Insomnia, unspecified; M08.00 Unspecified juvenile rheumatoid arthritis of unspecified site; M81.0 Age-related osteoporosis without current pathological fracture
CPT/HCPCS: 36415; 80053; 80061; 82306; 82607; 82746; 84443; 85025; 96127; 99396

== ENCOUNTER 2025-01-18 10:53 | Outpatient (AMB) | payer OTHER, SELFPAY ==
--- NOTE | 2025-01-18 10:53 | A.OFFPC_ITS ---
Vital Signs 01/18/25 10:56 Height 4 ft 7 in Weight 125 lb BMI 29.0 Intake Visit Reasons: f/u insomnia tele Allergies No Known Allergies Allergy (Verified 01/18/25 10:57) Medication List - Last Reconciled 01/18/25 by Tiara Leung PA-C acai marks extract mg PO cholecalciferol (vitamin D3) 25 mcg PO DAILY ferrous sulfate 325 mg PO DAILY multivitamin with iron 1 tab PO DAILY upadacitinib ER (Rinvoq) 15 mg PO DAILY [walker with 2 front wheels and 2 left and right platforms] Tobacco use date assessed: 01/18/25 Dental Screening Dental Screen Date: 11/09/24 HPI f/u insomnia tele HPI Details 49-year-old female with past medical his tory of juvenile rheumatoid arthritis, osteoporosis, hypercholesterolemia, psoriasis last seen 10/2024 presenting via telehealth for follow up. Patient tells us today she tried the trazodone a total of 9 times and did not find it helpful for sleep or for depression. She would like to try medication to be taken on an everyday basis for depression and for sleep. She has not tried any other antidepressants in the past that she remembers. 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 History of total right hip replacement Family History Mother Diabetes High blood pressure Heart failure Schizophrenia Mental health disorder Father Diabetes Maternal Aunt Breast cancer Social History Housing: Apartment Alcohol intake: never Patient Tobacco Use Status: Never used Tobacco Tobacco use type: Cigarette e-Cigarette/Vaping Use: Never Used Second Hand Smoke Exposure: No service: No Current occupational status: disabled Cognitive needs: No Hearing needs: Yes Vision needs: No Questionnaire Thrive Questionnaire Date Thrive assessed: 01/18/25 I am a: Patient What is your living situation today?: I have a steady place to live Within the past 12 months, did the food you bought not last and you didn't have the money to get more?: Never true Within the past 12 months, did you worry whether your food would run out before you got money to buy more?: Never true Do you have trouble paying for medicines?: No Do you have trouble getting transportation to medical appointments?: No Do you have trouble paying your heating and electricity bill?: No Do you have trouble taking care of your child, family member or friend?: I choose not to answer this question Do you have trouble with day-to-day activities such as bathing, preparing meals, shopping, managing finances, etc.?: Yes Are you currently unemployed and looking for a job?: Yes Are you interested in more education?: No Please select the resources that you would like help with: None Currently or been in a relationship where the following occur: No concerns repor johnson THRIVE Score: 0 AUDIT C Alcohol Use Questionnaire (AUDIT-C) 1. How often do you have a drink containing alcohol?: Never Total Score: 0 BIPIN-7 AMB Questionnaire BIPIN-7 Date BIPIN - 7 assessed: 11/09/24 Source: Developed by Drs. Willam Flynn, Beth Rush, Abhishek Mayfield and colleagues, with an educational dian from [employer]. Review of Systems Const Denies headache(s), Denies increased appetite and Denies lethargy Eyes Reports no additional complaints ENT Denies headache(s) Card Denies chest pain, Denies lightheadedness and Denies dyspnea Resp Denies dyspnea GI Reports constipation, Denies diarrhea, Denies nausea and Denies vomiting Neuro Denies headache(s) Physical exam (Primary Care) Vital Signs: Vital signs and physical exam not performed due to nature of telehealth visit BMI result Body Mass Index 29.0 Tobacco/Smoking Status: Tobacco use Status Tobacco use date assessed 01/18/25 01/18/25 11:00 Patient Tobacco Use Status Never used Tobacco 01/18/25 11:00 Tobacco use type Cigarette 01/18/25 11:00 e-Cigarette/Vaping Use Never Used 01/18/25 11:00 Thrive Assessment: Date of Thrive Assessment Date Thrive assessed 01/18/25 01/18/25 11:00 Currently or been in a relationship where the following occur: No concerns reported Telehealth Telehealth Telehealth Platform: [employer] Location of provider rendering services: practice address Location of patient: address on file Patient Identification confirmed using: Name, : Yes Telehealth method: video Patient verbally consented to treatment: Yes Patient verbally consented to billing insurance company: Yes Patient informed of any privacy concerns related to visit: Yes Coding Level of Care Code Tele Est Pt Level 3 (04404) Diagnoses Hypercholesterolemia E78.00 Insomnia G47.00 Depression F32.A Assessment & Plan Assessment & Plan (1) Hypercholesterolemia: Code(s): E78.00 - Pure hypercholesterolemia, unspecified Category: Medical Plan: Avoid foods that are high in cholesterol such as red meat, fried foods, eggs and baked goods. Triglyceride goal of less than 150 and LDL goal of less than 130. LDL still elevated at 143 discussed dietary and lifestyle modification. (2) Insomnia: Code(s): G47.00 - Insomnia, unspecified Category: Medical Plan: For sleep and depression we discussed a few options. Patient would like to try mirtazapine 7.5 mg in his aware of the side effect of weight gain. Prescription for mirtazapine 7.5 mg was sent to the pharmacy and plan to follow up via telehealth in 3 months or sooner as needed. All questions were answered regarding this prescription (3) Depression: Code(s): F32.A - Depression, unspecified Category: Medical Plan: See above Plan This note was constructed using voice recognition software. While every effort has been made to ensure accuracy and composition stone applicator, still areas may have been included sometimes these areas may affect the content or meeting of the given symptoms. Total time spent caring for the patient today was 20 minutes. This includes time spent before the visit reviewing the chart, time spent during the visit, and time spent after the visit and documentation. Medications: New mirtazapine 7.5 mg PO BEDTIME 90 tabs 0RF Discontinued trazodone Discontinued Reason: Patient no longer taking 50 mg PO BEDTIME 90 tabs 1RF for insomnia M81.0 - Age-related osteoporosis without current pathological fracture
[2025-01-18 10:56] VITALS: BMI 29.0
--- OUTSIDE RECORDS SUMMARY | 2025-01-18 13:44 | XMS_ITS | Clinical Summary ---
Author Organization [employer] [facility] Address [address] [place] [address] Care Team Providers Care Assistant Strength Coach Name Role Phone Unavailable Primary Care Provider Unavailabl e Social History Tobacco Use Types Packs/Day Years Used Date Smoking Tobacco: Never Assessed Comments Unknown Sex and Gender Information Value Date Recorded Sex Assigned at Not on file Legal Sex Female 4:52 AM EST Gender Identity Not on file Sexual Orientation Not on file Plan of Treatment Upcoming Encounters Date Type Department Care Team (Late st Contact Info) Description 02/01/2025 11:00 AM EST Appointment [facility] [address] [id number] Health Maintenance Due Date Last Done Comments Colorectal Cancer Screening: Colonoscopy 1975 DTaP,Tdap,and Td Vaccines (1 - Tdap) 01/05/1992 Hepatitis B Vaccines (1 of 3 - 19+ 3-dose series) 01/05/1992 Cervical Cancer Screening: Pap Smear 1994 HIV Screening 02/23/2022 Hepatitis C Screening 02/23/2022 Social Influencers of Health Screening 02/23/2022 Pneumococcal Vaccine: 50+ Years (1 of 1 - PCV) 2023 Zoster Vaccines (1 of 2) 2023 Depression Screening 03/23/2024 COVID-19 Vaccine (1 - 2023- season) 2024 Influenza Vaccine (#1) 2024 Breast Cancer Screening 06/21/2025 06/22/19 24, 04/07/2022, 04/04/2021, Additional history exists RSV Immunization Adult Patients (1 - 1-dose 75+ series) 01/05/2048 HIB Vaccines Aged Out No longer eligi ble based on patient's age to complete this topic HPV Vaccines Aged Out No longer eligi ble based on patient's age to complete this topic Hepatitis A Vaccines Aged Out No long er eligible based on patient's age to complete this topic IPV Vaccines Aged Out No longer eligi ble based on patient's age to complete this topic MMR Vaccines Aged Out No longer eligi ble based on patient's age to complete this topic Meningococcal ACWY Vaccine Aged Out N o longer eligible based on patient's age to complete this topic Meningococcal B Vaccine Aged Out No l onger eligible based on patient's age to complete this topic RSV Immunization Patients Under 20 months Aged Out No longer eligible based on patient's age to complete this topic Varicella Vaccines Aged Out No longer eligible based on patient's age to complete this topic Procedures Procedure Name Priority Date/Time Associated Diagnosis Comments [facility] SCREENING DIGITAL Routine 06/22/2023 4:33 PM EDT Encounter for screening mammogram for malignant neoplasm of breast from Last 3 Months or Most Recently Relevant to Health Maintenance Results * [facility] SCREENING DIGITAL (06/22/2023 4:33 PM EDT) Anatomical Region Laterality Modality Mammography 06/22/2023 11:1 5 AM EDT Narrative 06/22/2023 4:[address] [facility] Diagnostic Imaging Department [address] [place] [address] Patient: LISA OCHOA /Age/Sex: 1975 - 48 - F Unit#: [id number] Location/Status: SPDIMAM/REG CLI Mnemonic/Ordering Site: [facility] Ordering Physician: RAMAKRISHNA GALLO MD [facility] Screening Digital - 06/22/23 - [id number] Report Status:Signed EXAM: [facility] Screening Digital EXAM DATE AND TIME: 06/22/2023 11:40 AM HISTORY: Screening. COMPARISON: 04/07/22, 04/04/21, 04/04/20 TECHNIQUE: Bilateral digital breast tomosynthesis was performed in the CC and MLO projections. Computer aided detection with [employer] RFID 3D 3.1 was employed. TISSUE DENSITY: b. There are scattered areas of fibroglandular density. FINDINGS: The images are limited due to difficulty positioning this patient who is in a wheelchair. No pectoral muscle is included on the images. No suspicious masses, grouped microcalcifications, or areas of architectural distortion are seen. The skin and vascularity are unremarkable. IMPRESSION: Limited study. No mammographic evidence of malignancy is seen. A negative mammogram in the presence of a clinically suspicious palpable abnormality does not preclude the possibility of malignancy or alter the indications for biopsy. BI-RADS: Category 1: Negative RECOMMENDATION(S): 1: Routine screening mammogram BILATERAL in 1 year. Dictating Physician: KATELYN MCNEAL MD Electronically Signed by: KATELYN MCNEAL MD Dic Date/Time: 06/22/23 1632 Sign date/Time: 06/22/23 1633 Procedure Note Katelyn Mcneal MD - 11/09/2023 [facility] Diagnostic Imaging Department [address] [place], [place] [id number] Patient: LISA OCHOA D.O.B./Age/Sex: 1975 - 48 - F Unit#: [id number] Location/Status: [facility] CLI Mnemonic/Ordering Site: [facility] Ordering Physician: RAMAKRISHNA GALLO MD [facility] Screening Digital - 06/22/23 - [id number] Report Status:Signed EXAM: [facility] Screening Digital EXAM DATE AND TIME: 06/22/2023 11:40 AM HISTORY: Screening. COMPARISON: 04/07/22, 04/04/21, 04/04/20 TECHNIQUE: Bilateral digital breast tomosynthesis was performed in the CCand MLO projections. Computer aided detection with [employer] RF[employer] 3D 3.1was employed. TISSUE DENSITY: b. There are scattered areas of fibroglandular density. FINDINGS: The images are limited due to difficulty positioning this patient who isin a wheelchair. No pectoral muscle is included on the images. No suspicious masses, grouped microcalcifications, or areas ofarchitectural distortion are seen. The skin and vascularity are unremarkable. IMPRESSION: Limited study. No mammographic evidence of malignancy is seen. A negative mammogram in the presence of a clinically suspicious palpable abnormality does not preclude the possibility of malignancy or alter the indications for biopsy. BI-RADS: Category 1: Negative RECOMMENDATION(S): 1: Routine screening mammogram BILATERAL in 1 year. Dictating Physician: KATELYN MCNEAL MD Electronically Signed by: KATELYN MCNEAL MD Dic Date/Time: 06/22/23 1632 Sign date/Time: 06/22/23 1633 Ramakrishna Gallo MD IMG BI PROCEDURES Final Result from Last 3 Months or Most Recently Relevant to Health Maintenance Insurance [facility] Member Subscriber Plan / Payer (Ef fective 2018-Present) Name:LISA OCHOA Relation to Subscriber:Self Name:Lisa Ochoa Payer ID:[id number] Group ID:[id number] Type:Not on file Address: [address] [id number]
== END 2025-01-18 11:20 | disposition home or self-care (01) ==
LOC: HO.HMCH 10:53
PROVIDERS: PCP Internal Medicine
DX: E78.00 Pure hypercholesterolemia, unspecified (principal); G47.00 Insomnia, unspecified; F32.A Depression, unspecified